=== PATIENT | male | born 1990 | race Two or more races ===

== ENCOUNTER 2023-03-02 08:36 | Emergency (ER) | payer SELFPAY ==
[2023-03-02] MEDS ORDERED: Lidocaine/Prilocaine 2.5-2.5% Crm 5 GM Tube TOP ONE (09:06)
[2023-03-02] MEDS ORDERED: Hydrocortisone 2.5% Crm 30 GM Tube TOP ONE (09:06)
== END 2023-03-02 10:03 | disposition home or self-care (01) ==
LOC: MW.ED 08:36
DX: K64.5 Perianal venous thrombosis (principal)
CPT/HCPCS: 99283; A9270